=== PATIENT | female | born 1935 ===

== ENCOUNTER 2018-05-21 09:55 | Emergency (ER) | payer OTHER ==
[~2018-05-21] VITALS: Ht 154.9 cm; Wt 72.6 kg
[~2018-05-21 09:55] MED LIST: AMOX1TAB12 PO; PERCOCET 5/3251 TAB PO; TORADOL60 MG IM
[2018-05-21] MEDS ORDERED: TOPROL XL50 M1 (10:39)
[2018-05-21] MEDS ORDERED: DICLOFENAC SODI50 MG PO (12:02)
[2018-05-21] MEDS ORDERED: MEDROLPACK PO (12:02)
== END 2018-05-21 12:18 | disposition home or self-care (01) ==
LOC: ER 09:55
DX: M26.69 Other specified disorders of temporomandibular joint (principal); M13.842 Other specified arthritis, left hand